=== PATIENT | male | born 1990 | race Hispanic/Latino ===

== ENCOUNTER 2021-10-29 09:50 | Emergency (ER) | payer SELFPAY ==
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
[2021-10-29] MEDS ORDERED: KETOROLAC 10 MG TAB PO ONE (13:02)
[2021-10-29] MEDS ORDERED: oxyCODONE /ACETAMINOPHEN 5-325MG TAB PO ONE (13:02)
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
[2021-10-29 13:49] VITALS: BP 128/78
== END 2021-10-29 13:48 | disposition home or self-care (01) ==
LOC: ED 09:50
DX: S42.122A Displaced fracture of acromial process, left shoulder, initial encounter for closed fracture (principal); M25.519 Pain in unspecified shoulder; Z88.0 Allergy status to penicillin; X58.XXXA Exposure to other specified factors, initial encounter; Y93.89 Activity, other specified; Y92.89 Other specified places as the place of occurrence of the external cause; Y99.8 Other external cause status
CPT/HCPCS: 99283